=== PATIENT | female | born 1980 | race Caucasian/White ===

== ENCOUNTER → 2017-11-24 12:07 | Outpatient (CLI) | payer BC ==
[~2017-11-24 12:07] MED LIST: DILAUDID2 MG PO; LEVOTHYROXINE100 MCG PO; MAG-OXIDE400 MG PO; MOBIC7.5 MG PO; OMEPRAZOLE20 M1 PO; PROZAC20 MG PO; VITAMIN D2000 UNIT PO; ZANAFLEX4 MG PO
[2017-11-24 13:51] LABS: ERYTHROCYTE SEDIMENTATION RATE 9 mm/hr (0-20)
[2017-11-27 08:09] LABS: VITAMIN D 25 HYDROXY 15.4 ng/mL (30.0-100.0)
[2017-11-27 12:12] LABS: DOUBLE-STRANDED DNA ABS <1 IU/mL (0-9); RNP ANTIBODY 1.4 AI (0.0-0.9); SCLERODERMA AB (SCL-70) <0.2 AI (0.0-0.9); SJOGRENS AB SSA <0.2 AI (0.0-0.9); SJOGRENS AB SSB <0.2 AI (0.0-0.9); SMITH ANTIBODY <0.2 AI (0.0-0.9)
[2017-11-27 22:09] LABS: CYCLIC CITRULL PEPTIDE IGG/IGA 4 units (0-19)
[2017-11-28 12:55] LABS: HISTONE ANTIBODIES 0.7 Units (0.0-0.9)
[2017-12-01 08:15] VITALS: BMI 30.9
== END | disposition home or self-care (01) ==
LOC: D.LAB 12:07
PROVIDERS: Internal Medicine Rheumatology
DX: R76.0 Raised antibody titer (principal)

== ENCOUNTER 2017-12-01 06:45 | Day surgery (SDC) | payer BC ==
[2017-11-30 14:45] LABS: HEMATOCRIT 39.7 % (36.0-48.0); HEMOGLOBIN 13.3 g/dL (12-16); MCH 28.5 pg (26.0-34.0); MCHC 33.5 g/dL (31.0-37.0); MCV 85.2 fL (80.0-100.0); MEAN PLATELET VOLUME 9.8 fL (7.4-10.4); RBC 4.66 10x6/uL (4.00-5.40); RDW 13.5 % (11.5-14.5); WBC 10.4 10x3/uL (4.8-10.8)
[~2017-12-01] VITALS: Ht 162.6 cm; Wt 81.6 kg
--- NOTE | ~2017-12-01 | OP ---
PATIENT NAME: DAY DIOR MEDICAL RECORD: [id number] :82 LOCATION:D[facility] ADMISSION DATE: SURGEON: ESTEBAN LU MD DATE OF OPERATION: 12/01/2017 PREOPERATIVE DIAGNOSES: 1. Gallstones. 2. Hypothyroidism. 3. Gastroesophageal reflux disease. 4. Anxiety disorder. POSTOPERATIVE DIAGNOSES: 1. Gallstones. 2. Hypothyroidism. 3. Gastroesophageal reflux disease. 4. Anxiety disorder. PROCEDURE: Laparoscopic cholecystectomy. SURGEON: Esteban Lu MD REPORT OF PROCEDURE: The patient's abdomen was prepped and draped in sterile fashion. A cutdown was made on the inferior aspect of the umbilicus, 0 Vicryls were placed on the fascia bilaterally and the fascia was incised with 15-blade. I then bluntly entered the peritoneal cavity and placed a 12-mm Adrienne port. Under direct visualization, a 5 mm trocar was placed in the epigastrium and 2 more 5-mm trocars were placed in the right subcostal region. The gallbladder was grasped and elevated. There was no sign of any inflammatory changes. The cystic artery and cystic duct were dissected free and these were clipped proximally and distally and ligated in standard fashion. The gallbladder was taken off the liver bed using electrocautery and placed into the right upper quadrant. Any bleeding from the liver bed was then treated with electrocautery. At this point, the ports and insufflation were then removed and the gallbladder was taken out through the umbilicus. The umbilical fascia was closed with interrupted 0 Vicryls times 3. The wounds were then irrigated out with normal saline and infused with 10 mL of 0.25% Marcaine with epinephrine. The skin incisions were closed with subcutaneous 5-0 Monocryl and dressed appropriately. COMPLICATIONS: None. CONDITION: Stable. ANESTHESIA: General endotracheal and local. BLOOD LOSS: Minimal. TRANSINT:[id number] Voice Confirmation ID: [id number] DOCUMENT ID: [id number] OPERATIVE REPORT [id number] DAY DIOR CHRISTIAN MD at 1031 CC: YTE [id number] DICTATION DATE: 12/01/17 1141 HAIR SAMPLE MATCHER: 12/01/17 1447 [facility] 12/01/17 [id number] [place] [address]
[~2017-12-01 06:45] MED LIST changes: -DILAUDID2 MG PO
[2017-12-01 08:15] VITALS: BP 105/84; Ht 162.6 cm; Wt 81.6 kg
[2017-12-01] MEDS ORDERED: DILAUDID2 MG PO (11:35)
== END 2017-12-01 14:00 | disposition home or self-care (01) ==
LOC: D.OPS 06:45
PROVIDERS: Anesthesiology
DX: K82.8 Other specified diseases of gallbladder (principal); E03.9 Hypothyroidism, unspecified; K21.9 Gastro-esophageal reflux disease without esophagitis; E66.9 Obesity, unspecified; Z01.812 Encounter for preprocedural laboratory examination

== ENCOUNTER → 2018-01-19 12:16 | Outpatient (CLI) | payer BC ==
[2017-12-01 08:15] VITALS: BMI 30.9
[~2018-01-19 12:16] MED LIST changes: +DILAUDID2 MG PO
== END | disposition home or self-care (01) ==
LOC: D.MRI 12:16
DX: M25.562 Pain in left knee (principal)

== ENCOUNTER → 2018-04-11 13:48 | Outpatient (CLI) | payer BC ==
[2017-12-01 08:15] VITALS: BMI 30.9
== END | disposition home or self-care (01) ==
LOC: D.LAB 09:15
DX: E55.9 Vitamin D deficiency, unspecified (principal)